=== PATIENT | female | born 1980 | race Two or more races ===

== ENCOUNTER 2023-04-21 16:35 | Emergency (ER) | payer MEDICAID, SELFPAY ==
[2023-04-21 16:42] VITALS: BP 143/94; PULSE 82; RESP 18; TEMP 36.4; O2SAT 100; BMI 24.1
--- NOTE | 2023-04-21 16:44 | ED_ITS ---
HPI - General Adult General Chief complaint: Headache Stated complaint: blood pressure Time Seen by Provider: 04/21/23 18:00 Source: patient Mode of arrival: ambulatory Limitations: no limitations Related Data Previous Rx's Medication Instructions Recorded nbadsackiu-bkqmdematfhqt-xhhbifql 1 cap PO Q6H PRN headache #20 caps 04/21/23 50 mg-300 mg-40 mg capsule (Fioricet) Allergies Allergy/AdvReac Type Severity Reaction Status Date / Time No Known Allergies* Allergy Unknown Uncoded 04/21/23 16:48 PMFSH Social History Social History Advance Directives: No Advance Directives Information Provided: Yes Physical Exam ED Vital Signs: Vital Signs - 24 hr 04/21/23 16:42 Temperature 97.5 F Pulse Rate 82 Respiratory Rate 18 Blood Pressure 143/94 H Pulse Oximetry 100 Oxygen Delivery Method Room Air BMI result Body Mass Index 24.1 Course Course Course Narrative: This is an RME: Additional HPI, ROS, PE not included below will be deferred to primary provider. 43 year old female HTN presents w/ diffuse headache 8/10 (no changes in vision) , lightheadedness X 5 days. Has been taking her BP at home a nd its high. Recently started on Amlodipine 5 mg ( 2X 2.5 mg tablets a day) now told to just take 2.5 per a provider at [facility]. No head trauma. Under alot of stress at work NIHSS- 0 no need for head CT at this time Plan- tordol labs Medical Decision Making Lab Data 04/21/23 17:50 04/21/23 17:50 Labs: Lab Results 04/21/23 04/21/23 Range/Units 17:50 17:50 WBC 6.0 (4.8-10.8) X10*3/uL RBC 4.53 (4.20-5.50) X10*6/uL Hgb 12.0 (12.0-16.0) g/dl Hct 38.1 (37.0-47.0) % MCV 84.1 (80.0-98.0) fL MCH 26.5 L (27.0-33.0) pg MCHC 31.5 (31.0-35.0) g/dl RDW 13.8 (11.0-16.0) % Plt Count 199 (160-400) X10*3/uL MPV 9.7 (9.4-12.3) fL Immature Gran % (Auto) 0.2 (0.0-0.4) % Neut % (Auto) 64.0 (45-73) % Lymph % (Auto) 28.7 (20-40) % [place] % (Auto) 6.1 (2-11) % Eos % (Auto) 0.5 (0-4) % Baso % (Auto) 0.5 (0-2) % Lymph # (Auto) 1.7 (1.2-4.9) X10*3/uL [place] # (Auto) 0.4 (0.1-1.2) X10*3/uL Eos # (Auto) 0.0 (0.0-0.4) X10*3/uL Baso # (Auto) 0.0 (0.0-0.2) X10*3/uL Abs Immat Gran (auto) 0.01 (0.00-0.03) X10*3/uL Absolute Neuts (auto) 3.9 (2.0-8.3) x10*3/uL Absolute Nucleated RBC 0.000 (0.0-0.012) X10*3/uL Nucleated RBC % (auto) 0.0 (0.0-0.2) /100WBC Sodium 138 (135-145) mmol/L Potassium 4.0 (3.3-5.1) mmol/L Chloride 107 (96-108) mmol/L Carbon Dioxide 26 (22-29) mmol/L Anion Gap 9 L (12-20) BUN 16 (9-16) mg/dL Creatinine 0.74 (0.5-1.4) mg/dL Estim Creat Clear Calc 90.0 Estimated GFR > 60 Random Glucose 97 (60-115) mg/dL Calcium 9.5 (8.4-10.2) mg/dL Magnesium 2.4 (1.6-2.6) mg/dL Total Bilirubin 0.4 (0.0-1.0) mg/dL AST 15 (5-31) U/L ALT 11 (0-31) U/L Alkaline Phosphatase 38 L (39-117) U/L C-Reactive Protein 0.12 (< or = 0.50) mg/dL Total Protein 7.2 (6.5-8.0) g/dL Albumin 4.2 (3.5-5.0) g/dL Discharge Plan Discharge Clinical Impression: Tension headache Patient Disposition: Home, Self-Care Instructions: Tension Headache (ED) Additional Instructions: Rest at home Medication for headache as prescribed Follow-up with PCP as needed Your blood pressure was elevated today to 174/95 and you missed your medication for blood pressure take it when you go home Prescriptions: New mzhcsueljk-nicfioaxlmdat-msnm [Fioricet] 50-300-40 mg capsule 1 cap PO Q6H PRN (Reason: headache) Qty: 20 0RF
[2023-04-21 17:56] LABS: MANUAL DIFF FLAG NO
[2023-04-21 17:59] LABS: Basophils Percent Auto 0.5 % (0-2); Eosinophils Percent Auto 0.5 % (0-4); Hematocrit 38.1 % (37.0-47.0); Imm Gran Abs Auto 0.01 X10*3/uL (0.00-0.03); Imm Gran Pct Auto 0.2 % (0.0-0.4); Lymphocytes Absolute Auto 1.7 X10*3/uL (1.2-4.9); Lymphocytes Percent Auto 28.7 % (20-40); Mean Corpuscular HGB Conc 31.5 g/dl (31.0-35.0); Mean Corpuscular Hemoglobin 26.5 pg (27.0-33.0); Mean Corpuscular Volume 84.1 fL (80.0-98.0); Mean Platelet Volume 9.7 fL (9.4-12.3); Monocytes Absolute Auto 0.4 X10*3/uL (0.1-1.2); Monocytes Percent Auto 6.1 % (2-11); Neutrophils Absolute Auto 3.9 x10*3/uL (2.0-8.3); Platelet Count 199 X10*3/uL (160-400); Red Blood Count 4.53 X10*6/uL (4.20-5.50); Red Cell Distribution Width 13.8 % (11.0-16.0)
[2023-04-21 18:10] LABS: Alanine Aminotransferase 11 U/L (0-31); Albumin Level 4.2 g/dL (3.5-5.0); Alkaline Phosphatase 38 U/L (39-117); Anion Gap 9 (12-20); Aspartate Amino Transferase 15 U/L (5-31); Bilirubin Total 0.4 mg/dL (0.0-1.0); Blood Urea Nitrogen 16 mg/dL (9-16); C Reactive Protein 0.12 mg/dL (< or = 0.50); Calcium 9.5 mg/dL (8.4-10.2); Carbon Dioxide 26 mmol/L (22-29); Chloride 107 mmol/L (96-108); Estimated Glomerular Filt Rate > 60; Glucose Random 97 mg/dL (60-115); Magnesium 2.4 mg/dL (1.6-2.6); Sodium 138 mmol/L (135-145); Total Protein 7.2 g/dL (6.5-8.0)
--- NOTE | 2023-04-21 18:51 | ED.HA ---
HPI - Headache General Chief Complaint: Headache Stated Complaint: blood pressure Time Seen by Provider: 04/21/23 18:00 Source: patient Mode of arrival: ambulatory Limitations: no limitations History of Present Illness HPI Narrative: Patient has increased stress at work with multiple complaints complaint of dizziness headache for last few does not get help at work sleep well no fever no chills has mild hypertension taking her medication no fever no chills patient been diagnosed with blood pressure for last 2 years did not take her blood pressure medicine today as she thought maybe that the cause for the headache and is on arrival patient's blood pressure was 143/94 Related Data Previous Rx's Medication Instructions Recorded jcxbgfpdxi-rhowgvdcapslr-ijxtufns 1 cap PO Q6H PRN headache #20 caps 04/21/23 50 mg-300 mg-40 mg capsule (Fioricet) Allergies Allergy/AdvReac Type Severity Reaction Status Date / Time No Known Allergies* Allergy Unknown Uncoded 04/21/23 16:48 Review of Systems Review of Systems: Yes all other systems are reviewed and are negative [facility] Social History Social History Advance Directives: No Advance Directives Information Provided: Yes Physical Exam Vital Signs: Vital Signs: Last Vital Signs Temp 97.5 F 04/21/23 16:42 Pulse 82 04/21/23 16:42 Resp 18 04/21/23 16:42 BP 143/94 H 04/21/23 16:42 Pulse Ox 100 04/21/23 16:42 O2 Del Method Room Air 04/21/23 16:42 BMI result Body Mass Index 24.1 Appearance: Alert. Oriented X3. No acute distress. Eyes: PERRLA, No Nystagmus ENT: Pharynx normal. Oral Mucosa moist no temporal artery tenderness Neck: Normal inspection. Neck supple. CVS: Normal heart rate and rhythm. Pulses normal. Respiratory: No respiratory distress. Equal air entry bilateral, no wheezing/rales/rhonchi Abdomen: Soft and nontender. Bowel sounds are present, no mass palpable, no CVA tenderness Skin: Skin warm and dry. Normal skin color. Normal skin turgor. Extremities: No lower extremity edema. No calf tenderness Neuro: Oriented X 3. No motor deficit. No sensory deficit.No cerebellar signs , cranial nerves II-XII intact Medications Administered Discontinued Medications Generic Name Dose Route Start Last Admin Trade Name Aurea PRN Reason Stop Dose Admin Acetaminophen/Butalbital/Caffeine 1 tab 04/21/23 18:42 04/21/23 19:06 Butalb/Acetamin/Caff 50/325/40 Tablet PO 04/21/23 18:43 1 tab ONCE ONE Administration Medical Decision Making Medical Decision Making [facility] Narrative: Patient multiple complaints, dizziness and headache likely from tension headache will discharge her on Fioricet labs are stable patient blood pressure is elevated as she did not take her blood pressure medicine advised to continue her medication Lab Data [facility] Lab Attestation statement: I reviewed the patient's lab results. 04/21/23 17:50 04/21/23 17:50 Labs: Lab Results 04/21/23 04/21/23 04/21/23 Range/Units 17:50 17:50 17:50 WBC 6.0 (4.8-10.8) X10*3/uL RBC 4.53 (4.20-5.50) X10*6/uL Hgb 12.0 (12.0-16.0) g/dl Hct 38.1 (37.0-47.0) % MCV 84.1 (80.0-98.0) fL MCH 26.5 L (27.0-33.0) pg MCHC 31.5 (31.0-35.0) g/dl RDW 13.8 (11.0-16.0) % Plt Count 199 (160-400) X10*3/uL MPV 9.7 (9.4-12.3) fL Immature Gran % (Auto) 0.2 (0.0-0.4) % Neut % (Auto) 64.0 (45-73) % Lymph % (Auto) 28.7 (20-40) % [place] % (Auto) 6.1 (2-11) % Eos % (Auto) 0.5 (0-4) % Baso % (Auto) 0.5 (0-2) % Lymph # (Auto) 1.7 (1.2-4.9) X10*3/uL [place] # (Auto) 0.4 (0.1-1.2) X10*3/uL Eos # (Auto) 0.0 (0.0-0.4) X10*3/uL Baso # (Auto) 0.0 (0.0-0.2) X10*3/uL Abs Immat Gran (auto) 0.01 (0.00-0.03) X10*3/uL Absolute Neuts (auto) 3.9 (2.0-8.3) x10*3/uL Absolute Nucleated RBC 0.000 (0.0-0.012) X10*3/uL Nucleated RBC % (auto) 0.0 (0.0-0.2) /100WBC ESR 6 (0-20) MM/HR Sodium 138 (135-145) mmol/L Potassium 4.0 (3.3-5.1) mmol/L Chloride 107 (96-108) mmol/L Carbon Dioxide 26 (22-29) mmol/L Anion Gap 9 L (12-20) BUN 16 (9-16) mg/dL Creatinine 0.74 (0.5-1.4) mg/dL Estim Creat Clear Calc 90.0 Estimated GFR > 60 Random Glucose 97 (60-115) mg/dL Calcium 9.5 (8.4-10.2) mg/dL Magnesium 2.4 (1.6-2.6) mg/dL Total Bilirubin 0.4 (0.0-1.0) mg/dL AST 15 (5-31) U/L ALT 11 (0-31) U/L Alkaline Phosphatase 38 L (39-117) U/L C-Reactive Protein 0.12 (< or = 0.50) mg/dL Total Protein 7.2 (6.5-8.0) g/dL Albumin 4.2 (3.5-5.0) g/dL Discharge Plan Discharge Clinical Impression: Tension headache Patient Disposition: Home, Self-Care Instructions: Tension Headache (ED) Additional Instructions: Rest at home Medication for headache as prescribed Follow-up with PCP as needed Your blood pressure was elevated today to 174/95 and you missed your medication for blood pressure take it when you go home Prescriptions: New yoiqkilmgp-cuyqxxhsfnyll-iifm [Fioricet] 50-300-40 mg capsule 1 cap PO Q6H PRN (Reason: headache) Qty: 20 0RF
[2023-04-21 19:05] LABS: Erythrocyte Sedimentation Rate 6 MM/HR (0-20)
[2023-04-21] MEDS: Butalb/Acetamin/Caff 50/325/40 TABLET 1 TAB PO (19:06)
[2023-04-21 19:07] VITALS: BP 171/106; PULSE 72; RESP 16; O2SAT 100
== END 2023-04-21 19:10 | disposition home or self-care (01) ==
PROVIDERS: Physician Assistant; Emergency Provider Internal Medicine; PCP Internal Medicine
DX: G44.209 Tension-type headache, unspecified, not intractable (principal); R42 Dizziness and giddiness; I10 Essential (primary) hypertension
CPT/HCPCS: 36415; 80053; 83735; 85025; 85652; 86140; 99283; 99284

== ENCOUNTER 2023-09-24 14:23 | Emergency (ER) | payer MEDICAID, SELFPAY ==
--- NOTE | ~2023-09-24 | XR_ITS ---
EXAMINATION: XR CHEST CLINICAL INFORMATION: Cough COMPARISON: None available. TECHNIQUE: 2 views of the chest were obtained. FINDINGS: No significant abnormality is noted involving the heart, lungs, mediastinum, bony thorax or soft tissues. XR/XR chest 2V IMPRESSION: Unremarkable examination.
--- NOTE | 2023-09-24 14:32 | ED.HA ---
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 Patient reports her son is here with similar symptoms. She denies any associated shortness of breath, chest pain, neck pain, neck stiffness, fevers, chills, vomiting, diarrhea, abdominal pain. Of note, patient was in [place] 17 days and returned back to the [place] on September 13. Patient reports while she was in the [place] she had flu-like symptoms and felt that she had dengue. she was seen in the emergency room there and told that she had a viral syndrome and her platelets were low. She did follow up while she was in [place] and had repeat CBC which showed an improved platelet count. Related Data Previous Rx's Medication Instructions Recorded hrdsdqarat-namxaqkxbwtim-fyrimkhj 1 cap PO Q6H PRN headache #20 caps 04/21/23 50 mg-300 mg-40 mg capsule (Fioricet) Allergies Allergy/AdvReac Type Severity Reaction Status Date / Time No Known Allergies* Allergy Unknown Uncoded 04/21/23 16:48 Review of Systems Review of Systems: Yes all other systems are reviewed and are negative Constitutional: Constitutional: Reports no additional constitutional complaints, Denies body ache(s), Denies chills, Denies fever(s), Reports headache(s) and Denies weakness Eyes: Eyes: Reports no additional eye complaints and Denies change in vision ENT: Reports system reviewed and no additional complaints, except as documented, Denies dizziness, Reports headache(s), Denies nasal congestion, Denies nasal discharge and Denies neck pain Cardiovascular: Cardiovascular: Reports no additional cardiovascular complaints, Denies chest pain, Denies leg edema and Denies dyspnea Respiratory: Respiratory: Reports no additional respiratory complaints, Reports cough and Denies dyspnea Gastrointestinal: Gastrointestinal: Reports no additional gastrointestinal complaints, Denies abdominal pain, Denies diarrhea, Denies nausea and Denies vomiting Genitourinary: Genitourinary: Reports no additional female genitourinary complaints and Denies urinary incontinence Musculoskeletal: Musculoskeletal: Reports no additional musculoskeletal complaints, Denies back pain, Denies arthralgias, Denies joint swelling, Denies neck pain, Denies numbness and Denies tingling Integumentary/Breasts: Skin/Breast: Reports system reviewed and no additional complaints, except as docu and Denies rash Neurologic: Reports system reviewed and no additional complaints, except as documented, Denies Abnormal speech present, Denies dizziness, Reports headache(s), Denies numbness, Denies tingling and Denies weakness [facility] Past Medical History Attestation statement: The following information was validated with the patient. Source: old records reviewed and nursing notes reviewed Social History Social History Advance Directives: No Advance Directives Information Provided: Yes Physical Exam Vital Signs: Vital Signs: Last Vital Signs Temp 99.0 F 09/24/23 14:33 Pulse 77 09/24/23 14:33 Resp 18 09/24/23 14:33 BP 135/83 09/24/23 14:33 Pulse Ox 100 09/24/23 14:33 O2 Del Method Room Air 09/24/23 14:33 BMI result Body Mass Index 22.9 Const: General: cooperative, healthy appearing, comfortable and no acute distress Orientation/consciousness: patient oriented x3 Limitations: no limitations HEENT: Head: Yes normal to inspection Ears: hearing grossly normal bilaterally and TM's normal bilaterally General nose exam: Normal external nose present Face and sinus: Yes normal facial exam Mouth: Normal oral and palatal mucosa present Throat: Yes posterior oropharynx normal, Yes tonsils normal and Yes uvula midline Eyes: General: appearance normal, both eyes and all related structures Pupils: Equal, round and reactive pupils present Neck: Neck: Yes normal visual inspection, Yes full ROM, Yes no lymphadenopathy and Yes no meningeal signs Chest: Chest palpation & inspection: normal inspection of the chest Resp: Effort & Inspection: normal respiratory effort Auscultation: clear to auscultation bilaterally Cardio: Rate: regular rate Rhythm: regular rhythm Peripheral pulses: Peripheral pulses 2+ throughout GI: Inspection: Yes normal to inspection Palpation (GI): Soft to palpation and nontender Auscultation: normal bowel sounds Back/Spine/Pelvis: Thoracic/Lumbar Spine: thoracic and lumbar spine normal to inspection Skin: General skin exam: no rashes or lesions noted Neuro: General: patient oriented x3, no meningeal signs, no focal motor deficits and normal sensation to monofilament Cranial nerves: Yes Equal, round and reactive pupils present Cognition (Neuro): normal cognition Speech: No Abnormal speech present Gait exam (Neuro): Normal gait present Motor exam (neuro): 5/5 motor strength present throughout Extrem: General: Yes normal to inspection, Yes no pedal edema and Yes no calf tenderness Course Course Course Narrative: Patient is a 43 female Who presents emergency department for evaluation of upper respiratory symptoms x 3 weeks, symptom onset while recently traveling to [facility] where there is Dengue fever. She reports that she had blood work obtained which revealed ?low platelets? was advised that she cannot receive antibiotics. Son ill with similar symptoms. Progression over the past 1 week, of cough, chest discomfort only when coughing, denies shortness of breath. No fevers or chills. She is very concerned about her platelets, and would like repeat labs. Plan: labs, viral testing, CXR Medical Decision Making Medical Decision Making [facility] Narrative: 43-year-old female previously healthy here with complaints of 1 week of headache, cough. Patient reports her son is here with similar symptoms. She denies any associated shortness of breath, chest pain, neck pain, neck stiffness, fevers, chills, vomiting, diarrhea, abdominal pain. Of note, patient was in [place] 17 days and returned back to the [place] on [place] 13. Patient reports while she was in the [place] she had flu-like symptoms and felt that she had dengue. she was seen in the emergency room there and told that she had a viral syndrome and her platelets were low. She did follow up while she was in [place] and had repeat CBC which showed an improved platelet count. Exam is benign. vitals are stable. patient had labs, viral testing, chest x-ray ordered from triage I will review Differential Diagnosis Differential Diagnoses: The differential diagnosis associated with the presentation includes viral syndrome low concern for pneumonia, PE, meningitis/encephalitis- based on clinical exam Admission/Observation Consideration of admission/observation: Escalation of care including admission/observation considered normal vitals, not requiring supplemental oxygen and or IV hydration or hospitalization for further management Lab Data [facility] Lab Attestation statement: I reviewed the patient's lab results. unremarkable 09/24/23 14:52 09/24/23 14:52 Labs: Lab Results 09/24/23 Range/Units 14:52 WBC 6.0 (4.8-10.8) X10*3/uL RBC 4.73 (4.20-5.50) X10*6/uL Hgb 12.4 (12.0-16.0) g/dl Hct 39.6 (37.0-47.0) % MCV 83.7 (80.0-98.0) fL MCH 26.2 L (27.0-33.0) pg MCHC 31.3 (31.0-35.0) g/dl RDW 14.1 (11.0-16.0) % Plt Count 209 (160-400) X10*3/uL MPV 9.9 (9.4-12.3) fL Immature Gran % (Auto) 0.2 (0.0-0.4) % Neut % (Auto) 59.0 (45-73) % Lymph % (Auto) 33.6 (20-40) % [place] % (Auto) 6.2 (2-11) % Eos % (Auto) 0.5 (0-4) % Baso % (Auto) 0.5 (0-2) % Lymph # (Auto) 2.0 (1.2-4.9) X10*3/uL [place] # (Auto) 0.4 (0.1-1.2) X10*3/uL Eos # (Auto) 0.0 (0.0-0.4) X10*3/uL Baso # (Auto) 0.0 (0.0-0.2) X10*3/uL Abs Immat Gran (auto) 0.01 (0.00-0.03) X10*3/uL Absolute Neuts (auto) 3.5 (2.0-8.3) x10*3/uL Absolute Nucleated RBC 0.000 (0.0-0.012) X10*3/uL Nucleated RBC % (auto) 0.0 (0.0-0.2) /100WBC Sodium 140 (135-145) mmol/L Potassium 3.6 (3.3-5.1) mmol/L Chloride 105 (96-108) mmol/L Carbon Dioxide 27 (22-29) mmol/L Anion Gap 12 (12-20) BUN 9 (9-16) mg/dL Creatinine 0.78 (0.5-1.4) mg/dL Estim Creat Clear Calc 85.3 Estimated GFR > 60 Random Glucose 86 (60-115) mg/dL Calcium 9.3 (8.4-10.2) mg/dL Influenza Type A (PCR) NEGATIVE (Negative) Influenza Type B (PCR) NEGATIVE (Negative) RSV RNA Qual (PCR) NEGATIVE (Negative) SARS-CoV-2 RNA (RT-PCR) NEGATIVE (Negative) S. pyogenes GrpA MILVIA Negative (Negative) Independent Interpretation I performed an independent interpretation of an: Plain X-Ray Interpretation: I independently reviewed the x-ray and agree with Radiology report Radiology Impression Discussion of test interpretation with radiology: I have reviewed the radiologist's reading. Radiologist Impression: [address] [address] XRay Report Signed Patient: Arlet Mejia MR#: [id number] : 1980 Acct:[id number] Age/Sex: 43 / F ADM Date: 09/24/23 Loc: .ED Attending Dr: Ordering Physician: Charlette Barbosa CNP Date of Service: 09/24/23 Procedure(s): XR chest 2V Accession Number(s): [id number] cc: Ramona Lopez MD; Charlette Barbosa CNP~ EXAMINATION: XR CHEST CLINICAL INFORMATION: Cough COMPARISON: None available. TECHNIQUE: 2 views of the chest were obtained. FINDINGS: No significant abnormality is noted involving the heart, lungs, mediastinum, bony thorax or soft tissues. XR/XR chest 2V IMPRESSION: Unremarkable examination. Prescription Management I considered prescription management with: Antibiotic Discharge Plan Discharge Clinical Impression: Viral infection Patient Disposition: Home, Self-Care Instructions: Viral Syndrome (ED) Additional Instructions: Chest x-ray is normal. Labs are normal. Testing for flu, covid, rsv and strep are negative. La radiograf?a de t?rax es normal. Los laboratorios son normales. Las pruebas de gripe, covid, rsv y estreptococo son negativas. Prescriptions: No Action kgswxmzbiq-mcaozhxqywqmd-xysl [Fioricet] 50-300-40 mg capsule 1 cap PO Q6H PRN (Reason: headache) Qty: 20 0RF Referrals: Ramona Lopez MD [Primary Care Provider] - 1 week Interventions: ED Discharge Assessment Last Done: 09/24/23 16:34 Discharge Date/Time: 09/24/23 16:35 Print Language: [place]
[2023-09-24 14:33] VITALS: BP 135/83; PULSE 77; RESP 18; TEMP 37.2; O2SAT 100; BMI 22.9
[2023-09-24 14:59] LABS: MANUAL DIFF FLAG NO
[2023-09-24 15:01] LABS: Basophils Percent Auto 0.5 % (0-2); Eosinophils Percent Auto 0.5 % (0-4); Hematocrit 39.6 % (37.0-47.0); Hemoglobin 12.4 g/dl (12.0-16.0); Imm Gran Abs Auto 0.01 X10*3/uL (0.00-0.03); Imm Gran Pct Auto 0.2 % (0.0-0.4); Lymphocytes Percent Auto 33.6 % (20-40); Mean Corpuscular HGB Conc 31.3 g/dl (31.0-35.0); Mean Corpuscular Hemoglobin 26.2 pg (27.0-33.0); Mean Corpuscular Volume 83.7 fL (80.0-98.0); Mean Platelet Volume 9.9 fL (9.4-12.3); Monocytes Absolute Auto 0.4 X10*3/uL (0.1-1.2); Monocytes Percent Auto 6.2 % (2-11); Neutrophils Absolute Auto 3.5 x10*3/uL (2.0-8.3); Platelet Count 209 X10*3/uL (160-400); Red Blood Count 4.73 X10*6/uL (4.20-5.50); Red Cell Distribution Width 14.1 % (11.0-16.0)
[2023-09-24 15:14] LABS: IDNOW Serial# 08D9AD1C; Strep A Nucleic Acid Negative (Negative)
[2023-09-24 15:16] LABS: Anion Gap 12 (12-20); Blood Urea Nitrogen 9 mg/dL (9-16); Calcium 9.3 mg/dL (8.4-10.2); Carbon Dioxide 27 mmol/L (22-29); Chloride 105 mmol/L (96-108); Creatinine Clr Calc Pharmacy 85.3; Estimated Glomerular Filt Rate > 60; Glucose Random 86 mg/dL (60-115); Potassium 3.6 mmol/L (3.3-5.1); Sodium 140 mmol/L (135-145)
[2023-09-24 15:53] LABS: Influenza A PCR NEGATIVE (Negative); Influenza B PCR NEGATIVE (Negative); Resp Syncy Virus RNA Qual PCR NEGATIVE (Negative); SARS COV2 PCR INHOUSE NEGATIVE (Negative)
== END 2023-09-24 16:35 | disposition home or self-care (01) ==
PROVIDERS: Nurse Practitioner Family; Emergency Provider Emergency Medicine; PCP Internal Medicine
DX: B34.9 Viral infection, unspecified (principal); R05.9 Cough, unspecified; R51.9 Headache, unspecified; Z20.822 Contact with and (suspected) exposure to COVID-19; Z20.828 Contact with and (suspected) exposure to other viral communicable diseases
CPT/HCPCS: 0241U; 71046; 80048; 85025; 87651; 99282; 99283

== ENCOUNTER 2023-10-24 13:22 | Emergency (ER) | payer MEDICAID, SELFPAY ==
--- NOTE | ~2023-10-24 | XR_ITS ---
EXAMINATION: XR SHOULDER, RIGHT CLINICAL INFORMATION: Pain, no injury COMPARISON: None available. TECHNIQUE: AP external rotation, Grashey, scapular Y, and axillary views of the right shoulder. FINDINGS: No acute fracture or dislocation. Glenohumeral and acromioclavicular alignment is anatomic with normal joint space. No abnormal soft tissue calcifications. XR/XR shoulder RT min 2V IMPRESSION: No evidence of acute osseous abnormality.
[2023-10-24 13:33] VITALS: BP 130/85; PULSE 74; RESP 18; TEMP 37.2; O2SAT 99; BMI 23.7
--- NOTE | 2023-10-24 13:37 | ED_ITS ---
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 No known injury or trauma. Worsened at night time when laying on the shoulder. 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 Taking tylenol for pain at home with no relief. No associated weakness, nunbness or tingling of the extremity. Related Data Previous Rx's Medication Instructions Recorded [id number]-pxlhndivjfdqp-lahobmnw 1 cap PO Q6H PRN headache #20 caps 04/21/23 50 mg-300 mg-40 mg capsule (Fioricet) naproxen 500 mg tablet 500 mg PO BID PRN pain #30 tabs 10/24/23 Allergies Allergy/AdvReac Type Severity Reaction Status Date / Time No Known Allergies* Allergy Unknown Uncoded 10/24/23 13:36 Review of Systems Review of Systems: Yes all other systems are reviewed and are negative Constitutional: Constitutional: Reports no additional constitutional compla ints, Denies body ache(s), Denies chills, Denies fever(s), Denies headache(s) and Denies weakness Eyes: Eyes: Reports no additional eye complaints and Denies change in vision ENT: Reports system reviewed and no additional complaints, except as documented, Denies dizziness, Denies headache(s), Denies nasal congestion, Denies nasal discharge and Denies neck pain Cardiovascular: Cardiovascular: Reports no additional cardiovascular complaints, Denies chest pain, Denies leg edema and Denies dyspnea Respiratory: Respiratory: Reports no additional respiratory complaints, Denies cough and Denies dyspnea Gastrointestinal: Gastrointestinal: Reports no additional gastrointestinal complaints, Denies abdominal pain, Denies diarrhea, Denies nausea and Denies vomiting Genitourinary: Genitourinary: Reports no additional female genitourinary complaints and Denies urinary incontinence Musculoskeletal: Musculoskeletal: Reports no additional musculoskeletal complaints, Denies back pain, Reports arthralgias, Denies joint swelling, Denies neck pain, Denies numbness and Denies tingling Integumentary/Breasts: Skin/Breast: Reports system reviewed and no additional complaints, except as docu and Denies rash Neurologic: Reports system reviewed and no additional complaints, except as documented, Denies Abnormal speech present, Denies dizziness, Denies headache(s), Denies numbness, Denies tingling and Denies weakness PMFSH Past Medical History Attestation statement: The following information was validated with the patient. Source: old records reviewed and nursing notes reviewed Onset Date is defined in the Problem List Problems that require an onset date and time if occurred within 24 hrs of arrival to the ED Aortic Dissection and Rupture; Neurologic impairment; Cardiopulmonary Arrest; En dotracheal Intubation; Insertion or Replacement of Mechanical Circulatory Assist Device Social History Social History Advance Directives: No Advance Directives Information Provided: No Physical Exam Vital Signs: Vital Signs: Last Vital Signs Temp 98.9 F 10/24/23 13:33 Pulse 74 10/24/23 13:33 Resp 18 10/24/23 13:33 BP 130/85 10/24/23 13:33 Pulse Ox 99 10/24/23 13:33 O2 Del Method Room Air 10/24/23 13:33 BMI result Body Mass Index 23.7 Const: General: cooperative, healthy appearing, comfortable and no acute distress Orientation/consciousness: patient oriented x3 Limitations: no limitations HEENT: Head: Yes normal to inspection Ears: hearing grossly normal bilaterally General nose exam: Normal external nose present Face and sinus: Yes normal facial exam Mouth: Normal oral and palatal mucosa present Throat: Yes posterior oropharynx normal Eyes: General: appearance normal, both eyes and all related structures Pupils: Equal, round and reactive pupils present Neck: Neck: Yes normal visual inspection Chest: Chest palpation & inspection: normal inspection of the chest Resp: Effort & Inspection: normal respiratory effort Auscultation: clear to auscultation bilaterally Cardio: Rate: regular rate Rhythm: regular rhythm Peripheral pulses: Peripheral pulses 2+ throughout GI: Inspection: Yes normal to inspection Palpation (GI): Soft to palpation and nontender Auscultation: normal bowel sounds Back/Spine/Pelvis: Thoracic/Lumbar Spine: thoracic and lumbar spine normal to inspection Skin: General skin exam: no rashes or lesions noted Neuro: General: patient oriented x3, no focal motor deficits and normal sensation to monofilament Cranial nerves: Yes Equal, round and reactive pupils present Cognition (Neuro): normal cognition Speech: No Abnormal speech present Gait exam (Neuro): Normal gait present Motor exam (neuro): 5/5 motor strength present throughout Extrem: Other: There is tenderness to palpation to the right posterior shoulder and trapezius which is worsened with palpation and movement of the extremity. There is no associated weakness. Normal sensation distally. Normal radial and ulnar pulses. General: Yes normal to inspection Course Course Course Narrative: this is a rapid medical exam. Defer additional HPI, ROS, PE to prior provider. 43-year-old female previously healthy here with complaints of atraumatic right shoulder pain for 1 week. Will check x-rays. Vitals stable. Medical Decision Making Medical Decision Making MDM Narrative: 43-year-old female previously healthy, right hand dominant here with complaints of atraumatic right shoulder pain for 1 week. No known injury or trauma. Worsened at night time when laying on the shoulder. 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 No associated weakness, nunbness or tingling of the extremity. There is tenderness to palpation to the right posterior shoulder and trapezius which is worsened with palpation and movement of the extremity. There is no associated weakness. Normal sensation distally. Normal radial and ulnar pulses. ?strain or overuse injury. Will obtain x-ray Differential Diagnosis Differential Diagnoses: The differential diagnosis associated with the presentation includes strain, sprain, bursitis, tendon low concern for vascular injury, fracture, dislocation Admission/Observation Consideration of admission/observation: Escalation of care including admission/observation considered low concern for vascular injury, complex fracture, dislocation requiring advanced imaging, urgent orthopedic consultation or further manage Independent Interpretation I performed an independent interpretation of an: Plain X-Ray Interpretation: I independently reviewed the x-ray and agree with the radiology report Radiology Impression Discussion of test interpretation with radiology: I have reviewed the radiologist's reading. Radiologist Impression: [address] [address] XRay Report Signed Patient: Arlet Mejia MR#: [id number] : 1980 Acct:[id number] Age/Sex: 43 / F ADM Date: 10/24/23 Loc: HO.ED Attending Dr: Ordering Physician: Jade Dee NP Date of Service: 10/24/23 Procedure(s): XR shoulder RT min 2V Accession Number(s): [id number] cc: Ramona Lopez MD; Jade Dee NP~ EXAMINATION: XR SHOULDER, RIGHT CLINICAL INFORMATION: Pain, no injury COMPARISON: None available. TECHNIQUE: AP external rotation, Grashey, scapular Y, and axillary views of the right shoulder. FINDINGS: No acute fracture or dislocation. Glenohumeral and acromioclavicular alignment is anatomic with normal joint space. No abnormal soft tissue calcifications. XR/XR shoulder RT min 2V IMPRESSION: No evidence of acute osseous abnormality. Tests considered The following testing was considered but not selected: low concern for vascular injury, fracture, dislocation requiring advanced imaging Prescription Management I considered prescription management with: Pain Medication Discharge Plan Discharge Clinical Impression: Acute shoulder pain Patient Disposition: Home, Self-Care Instructions: Arthralgia (ED), Shoulder Pain (ED) Additional Instructions: X-rays show no bony abnormality Apply heat or ice to the area Gentle stretching Follow-up with your PCP for continued symptoms. Las radiograf?as no muestran ninguna anomal?a ?sea. Aplicar calor o hielo en la nancy. Estiramiento suave Adri un seguimiento con chang PCP si los s?ntomas persisten. Prescriptions: New naproxen 500 mg tablet 500 mg PO BID PRN (Reason: pain) Qty: 30 0RF No Action cwihbuldsi-qqintkxiljpet-cjrq [Fioricet] 50-300-40 mg capsule 1 cap PO Q6H PRN (Reason: headache) Qty: 20 0RF Referrals: Ramona Lopez MD [Primary Care Provider] - 1 week Interventions: ED Discharge Assessment Last Done: 10/24/23 16:03 Print Language: Pashto
== END 2023-10-24 16:04 | disposition home or self-care (01) ==
PROVIDERS: Emergency Provider Emergency Medicine; PCP Internal Medicine
DX: M25.511 Pain in right shoulder (principal)
CPT/HCPCS: 73030; 99282; 99283

== ENCOUNTER 2023-11-20 10:18 | Emergency (ER) | payer MEDICAID, SELFPAY ==
[2023-11-20 10:56] VITALS: BP 134/90; PULSE 77; RESP 18; TEMP 36.7; O2SAT 100; BMI 23.8
--- NOTE | 2023-11-20 11:17 | ED_ITS ---
HPI - Extremity Problem General Chief complaint: Extremity Injury, Upper Stated complaint: R arm pain Time Seen by Provider: 11/20/23 11:13 Source: patient Mode of arrival: ambulatory Limitations: language barrier ( Wallisian-speaking) History of Present Illness HPI Narrative: Patient is a 43-year-old female who presents emergency department for evaluation of right shoulder pain. Pain radiates down the arm. Denies numbness or tingling. She reports onset approximately 4 days ago. Is made worse with heavy lifting while at work or movement of the arm. She denies associated neck pain or neck stiffness. Denies any overt injury. She states she was seen here earlier this month for the same pain, she was taking naproxen at that time which did help and her symptoms resolved but have now returned. She denies fevers, chills, redness, swelling to the shoulder/ arm. Related Data Previous Rx's Medication Instructions Recorded pptosmfzvv-stccievxrpptx-tuvrcmve 1 cap PO Q6H PRN headache #20 caps 04/21/23 50 mg-300 mg-40 mg capsule (Fioricet) naproxen 500 mg tablet 500 mg PO BID PRN pain #30 tabs 10/24/23 cyclobenzaprine 10 mg tablet 10 mg PO TID PRN muscle spasm #14 11/20/23 tabs Allergies Allergy/AdvReac Type Severity Reaction Status Date / Time No Known Allergies* Allergy Unknown Uncoded 11/20/23 10:58 Review of Systems Review of Systems: Yes all other systems are reviewed and are negative PMFSH Past Medical History Attestation statement: The following information was validated with the patient. Source: old records reviewed Social History Social History Advance Directives: No Physical Exam Vital Signs: Vital Signs: Last Vital Signs Temp 98.0 F 11/20/23 10:56 Pulse 77 11/20/23 10:56 Resp 18 11/20/23 10:56 BP 134/90 H 11/20/23 10:56 Pulse Ox 100 11/20/23 10:56 O2 Del Method Room Air 11/20/23 10:56 BMI result Body Mass Index 23.8 Appearance: Alert.?Oriented to person, place and time. No acute distress.?Normal affect. Eyes: Pupils equal, round and reactive to light.? ENT: Pharynx normal.?? Neck: Normal inspection.? Neck supple.?? CVS: Heart sounds normal. Normal heart rate and rhythm.? Pulses normal.?? Respiratory: No respiratory distress.? Lung sounds clear to auscultation bilaterally?? Abdomen: Soft and non-tender. Normoactive bowel sounds. Skin: Skin warm and dry.? Normal skin color.? Extremities: No extremity edema. Right shoulder without erythema warmth or swelling. Full AROM to the right elbow and wrist. Tenderness upon palpation of the right posterior shoulder and trapezius, worsening with overhead extension and abduction. no weakness. Normal sensation distally. 2+ radial pulse bilaterally. Neuro: Moves all extremities spontaneously. Sensation intact bilaterally. Ambulates with normal steady gait. Medical Decision Making Medical Decision Making MDM Narrative: Patient is a 43-year-old female who presents emergency department for evaluation of right shoulder pain. She was seen in the emergency department earlier this month 10/24/2023, had XR imaging at that time without acute osseous abnormality, no overt injury since then, do not anticipate need for repeat XR imaging. Pain is exacerbated with heavy lifting. extremities neurovascularly intact distally, no weakness, numbness or tingling. Tylenol/ naproxen not providing pain relief. Discussed with patient likely strain of the shoulder versus overuse injury. She has notable muscle tenderness upon palpation will trial cyclobenzaprine and advised to follow-up with her primary care doctor for further management. She states she will call their office tomorrow. At this time feel that she is stable for discharge home. Differential Diagnosis Differential Diagnoses: The differential diagnosis associated with the presentation includes ( strain, sprain, overuse injury. Low suspicion for tendonitis, vascular injury, fracture, dislocation) External Record Review External record reviewed: Outpatient record Tests considered The following testing was considered but not selected: see narrative above, XR deferred Prescription Management I considered prescription management with: Pain Medication Discharge Plan Discharge Clinical Impression: Right shoulder strain Patient Disposition: Home, Self-Care Instructions: R.I.C.E. Treatment (ED), Rotator Cuff Injury Exercises (DC) Additional Instructions: I have sent a prescription for muscle relaxer to your pharmacy, this medication may make you drowsy, he should not drive, drink alcohol, or work while taking this medication. As discussed, please contact your primary care provider to schedule a follow-up visit for this ongoing pain, they may consider a course of physical therapy as well. You may return back to emergency department any new or worsening symptoms or concerns. Prescriptions: New cyclobenzaprine 10 mg tablet 10 mg PO TID PRN (Reason: muscle spasm) Qty: 14 0RF No Action mwsajxhosu-zqibicczmsqun-fzkp [Fioricet] 50-300-40 mg capsule 1 cap PO Q6H PRN (Reason: headache) Qty: 20 0RF naproxen 500 mg tablet 500 mg PO BID PRN (Reason: pain) Qty: 30 0RF Referrals: Ramona Lopez MD [Primary Care Provider] - Stand Alone Forms: Work/School Release
== END 2023-11-20 11:44 | disposition home or self-care (01) ==
PROVIDERS: Emergency Provider Emergency Medicine; PCP Internal Medicine
DX: S46.911A Strain of unspecified muscle, fascia and tendon at shoulder and upper arm level, right arm, initial encounter (principal); M79.601 Pain in right arm; X50.0XXA Overexertion from strenuous movement or load, initial encounter; Y93.9 Activity, unspecified; Y92.9 Unspecified place or not applicable; Y99.0 Civilian activity done for income or pay; Z79.899 Other long term (current) drug therapy
CPT/HCPCS: 99282; 99283

== ENCOUNTER 2023-12-12 16:51 | Emergency (ER) | payer MEDICAID, SELFPAY ==
[2023-12-12 17:42] VITALS: BP 160/108; PULSE 89; RESP 16; TEMP 37.4; O2SAT 99; BMI 23.3
--- NOTE | 2023-12-12 17:42 | ECG_ITS ---
Test Reason : SHOULDER PAIN Blood Pressure : / mmHG Vent. Rate : 074 BPM Atrial Rate : 074 BPM P-R Int : 146 ms QRS Dur : 074 ms QT Int : 372 ms P-R-T Axes : 072 069 072 degrees QTc Int : 412 ms Normal sinus rhythm Normal ECG No previous ECGs available Referred By: Inge Traore Electronically Signed By:KINGS RUSH MD
--- NOTE | 2023-12-12 17:42 | ED_ITS ---
HPI - Extremity Injury (Upper) General Chief Complaint: Extremity Problem Stated Complaint: R shoulder pain Time Seen by Provider: 12/12/23 20:03 Source: patient Mode of arrival: ambulatory History of Present Illness HPI narrative: 43-year-old female with persistent right shoulder discomfort as well as muscle pain across the right shoulder that is been ongoing, patient is having some difficulty on getting seen by Physical therapy but has an appointment with her primary care doctor this next week. Patient denies any associated difficulty breathing or fever/chills. Related Data Previous Rx's Medication Instructions Recorded rwfnrldepn-gmqtwpdcjkgpv-negplxrk 1 cap PO Q6H PRN headache #20 caps 04/21/23 50 mg-300 mg-40 mg capsule (Fioricet) naproxen 500 mg tablet 500 mg PO BID PRN pain #30 tabs 10/24/23 cyclobenzaprine 10 mg tablet 10 mg PO TID PRN muscle spasm #14 11/20/23 tabs cyclobenzaprine 5 mg tablet 5 mg PO BEDTIME PRN muscle spasm 12/12/23 #5 tabs Allergies Allergy/AdvReac Type Severity Reaction Status Date / Time No Known Allergies* Allergy Unknown Uncoded 12/12/23 17:42 Review of Systems Review of Systems: Pertinent positives and negatives as stated in HPI PMFSH Past Medical History Source: nursing notes reviewed Social History Social History Advance Directives: No Advance Directives Information Provided: No Physical Exam Vital Signs: Vital Signs: Last Vital Signs Temp 98.5 F 12/12/23 20:01 Pulse 81 12/12/23 20:01 Resp 19 12/12/23 20:01 BP 155/98 H 12/12/23 20:01 Pulse Ox 98 12/12/23 20:01 O2 Del Method Room Air 12/12/23 20:01 BMI result Body Mass Index 23.3 VITAL SIGNS: Reviewed. GENERAL: Well developed, well nourished, in no acute distress. HEAD: Normocephalic/atraumatic EYES: PERRLA, EOMI LUNGS: Normal breath sounds. No adventitious sounds or accessory muscle use. SpO2<98> CARDIOVASCULAR: Regular rate and rhythm without noted murmurs ABDOMEN: Soft, non-tender, non-distended with bowel sounds. MUSCULOSKELETAL: No tenderness, deformities, or effusions noted on gross inspection. EXTREMITIES: No cyanosis, clubbing or edema. RIGHT SHOULDER: No obvious deformity, no effusion noted, no erythema/induration. Palpation over musculature on right shoulder demonstrates firmness SKIN: Inspection of the skin reveals no rashes NEUROLOGIC: Alert and oriented x 4. Strength and sensation to light touch were grossly intact x 4. Course Course Course Narrative: RME: 43 year-old F w/no sig PMHx presenting to the ED c/o acute on chronic R shoulder pain. Has been seen in our ED for similar in the past, had negative XRs in Oct. denies CP EKG ordered Full HPI, ROS and PE to be performed by primary ED provider. Medical Decision Making Medical Decision Making MDM Narrative: 43-year-old female with history and clinical presentation of persistent right shoulder discomfort and likely associated muscle spasm, no concerns for cardiopulmonary etiology at this time I did review the EKG which was conducted and does not show any ischemic changes. Patient given combination analgesics and lidocaine patch and will send home on a regimen as strongly encouraged to reach out to her primary care doctor once again for the physical therapy referral. Differential Diagnosis Differential Diagnoses: The differential diagnosis associated with the presentation includes Please see the discussion above Admission/Observation Consideration of admission/observation: Escalation of care including admission/observation considered Please see the discussion above Independent Interpretation I performed an independent interpretation of an: EKG Interpretation: Normal sinus rhythm, HR-74, no STEMI, MO/QRS/QTC is within normal limits. External Record Review External record reviewed: Prior outpatient radiology Critical Care Time Critical Care Time Critical Care Time: Yes Total Critical Care Time: 30 Attestation: I personally attest to this time spent taking care of the patient. Discharge Plan Discharge Clinical Impression: Chronic right shoulder pain, Muscle spasm Patient Disposition: Home, Self-Care Instructions: Muscle Spasm (ED), Shoulder Pain (ED) Additional Instructions: 1. Tylenol 1000 mg, por v?a oral, cada 6 horas seg?n sea necesario para controlar el dolor. No exceda los 4000 mg en 24 horas. 2. Ibuprofeno 400 mg, por v?a oral con leche o comida, cada 6 horas seg?n sea necesario para controlar el dolor. Le recomiendo encarecidamente que tome ambos medicamentos juntos para mejorar el alivio de los s?ntomas. 3. Utilice un parche de lidoca?na de venta vj y apl?quelo en el ?che de m?xima sensibilidad simona se indica en el paquete exterior. 4. Adri un seguimiento con chang m?dico de atenci?n primaria seg?n lo programado y comun?quese fuera de la cl?alyson para poder obtener vesta copia de la derivaci?n de fisioterapia. Regrese a la braden de emergencias si los s?ntomas empeoran. 1. Tylenol 1000 mg, orally, every 6 hours as needed for pain control. Do not exceed 4000 mg within 24 hours. 2. Ibuprofen 400 mg, orally with milk or food, every 6 hours as needed for pain control. I highly recommend that you take both of these medications together for improved symptom relief. 3. Please utilize bhho-upg-ucfobwm lidocaine patch, apply to area of maximal tenderness as directed on the outside packaging. 4. Please follow-up with your primary care doctor as scheduled and reach out of the clinic so that you can get copy of the physical therapy referral. Return to the ER for any worsening symptoms. Prescriptions: New cyclobenzaprine 5 mg tablet 5 mg PO BEDTIME PRN (Reason: muscle spasm) Qty: 5 0RF No Action nmljscbxud-kjemdbmhftozi-jjmn [Fioricet] 50-300-40 mg capsule 1 cap PO Q6H PRN (Reason: headache) Qty: 20 0RF naproxen 500 mg tablet 500 mg PO BID PRN (Reason: pain) Qty: 30 0RF cyclobenzaprine 10 mg tablet 10 mg PO TID PRN (Reason: muscle spasm) Qty: 14 0RF Referrals: Ramona Lopez MD [Primary Care Provider] - Print Language: Vincentian
[2023-12-12 20:01] VITALS: BP 155/98; PULSE 81; RESP 19; TEMP 36.9; O2SAT 98
[2023-12-12] MEDS: Lidocaine 4 % Patch ADH..PATCH 1 PATCH TRANSDERMA (21:01)
[2023-12-12] MEDS: Acetaminophen 325 MG TABLET 975 MG PO (21:01)
[2023-12-12] MEDS: Ibuprofen 400 MG TABLET PO (21:02)
== END 2023-12-12 21:10 | disposition home or self-care (01) ==
PROVIDERS: Emergency Provider Student in an Organized Health Care Education/Training Program; PCP Internal Medicine
DX: S49.91XA Unspecified injury of right shoulder and upper arm, initial encounter (principal); M62.838 Other muscle spasm; X58.XXXA Exposure to other specified factors, initial encounter; Y93.9 Activity, unspecified; Y92.9 Unspecified place or not applicable; Y99.8 Other external cause status
CPT/HCPCS: 93005; 99283; 99284

== ENCOUNTER → 2023-12-12 17:42 | Outpatient (BNV) | payer MEDICAID, SELFPAY | PROVIDERS: Emergency Provider Student in an Organized Health Care Education/Training Program; PCP Internal Medicine; Visit Provider Internal Medicine Cardiovascular Disease | DX: M25.511 Pain in right shoulder (principal) | CPT/HCPCS: 93010 ==

== ENCOUNTER 2024-03-22 16:00 | Outpatient (RCR) | payer MEDICAID, SELFPAY | END 2024-03-22 17:57 | disposition home or self-care (01) | LOC: HO.PT 16:00 | PROVIDERS: PCP Internal Medicine; Visit Provider Family Medicine | DX: S46.811A Strain of other muscles, fascia and tendons at shoulder and upper arm level, right arm, initial encounter (principal) | CPT/HCPCS: 97110; 97140; 97161; 97530 ==

== ENCOUNTER 2024-03-30 01:00 | Emergency (ER) | payer MEDICAID, SELFPAY ==
[2024-03-30 01:10] VITALS: BP 140/65; PULSE 65; RESP 18; TEMP 36.2; O2SAT 100; BMI 24.9
--- NOTE | 2024-03-30 02:21 | ED.EXTPRO ---
HPI - Extremity Problem General Chief complaint: Extremity Injury, Upper Stated complaint: gen med? Time Seen by Provider: 03/30/24 01:57 History of Present Illness HPI Narrative: Patient is a 44-year-old female presented today complaining of pain to the right neck radiating down to the thumb claims that the symptom has been ongoing for months. Went to physical therapy initially was helping now is having symptoms again patient works at [employer] claims she is lifting heavy objects. Denies any fever chills. Denies any nausea vomiting. Denies any chest pain. Denies any diaphoresis. Was lifting heavy bags today. Once a couple day off. Denies any focal weakness. Denies any chance of being . No focal weakness Related Data Previous Rx's ?Medication ?Instructions ?Recorded [id number]-rvngdnaybpdvt-qyyvzmyd 1 cap PO Q6H PRN headache #20 caps 04/21/23 50 mg-300 mg-40 mg capsule (Fioricet) naproxen 500 mg tablet 500 mg PO BID PRN pain #30 tabs 10/24/23 cyclobenzaprine 10 mg tablet 10 mg PO TID PRN muscle spasm #14 11/20/23 tabs cyclobenzaprine 5 mg tablet 5 mg PO BEDTIME PRN muscle spasm 12/12/23 #5 tabs ibuprofen 400 mg tablet 400 mg PO Q6H PRN pain #20 tabs 03/30/24 Allergies Allergy/AdvReac Type Severity Reaction Status Date / Time No Known Allergies* Allergy Unknown Uncoded 03/30/24 01:14 Review of Systems Review of Systems: Positive pain to the neck on the right side Yes all other systems are reviewed and are negative [facility] Past Medical History Attestation statement: The following information was validated with the patient. Social History Social History Alcohol intake: unknown Advance Directives: No Advance Directives Information Provided: Yes Do you have a plan to hurt others: No Plan Physical Exam Vital Signs: Vital Signs: Last Vital Signs Temp 97.1 F 03/30/24 01:10 Pulse 65 03/30/24 01:10 Resp 18 03/30/24 01:10 BP 140/65 H 03/30/24 01:10 Pulse Ox 100 03/30/24 01:10 O2 Del Method Room Air 03/30/24 01:10 BMI result Body Mass Index 24.9 Appearance: Alert. Oriented X3. No acute distress. Eyes: Pupils equal, round and reactive to light. ENT: Pharynx normal. Neck: Normal inspection. Neck supple. No lymph nodes noted. No crepitus CVS: Normal heart rate and rhythm. Pulses normal. Normal S1 and S2 Respiratory: No respiratory distress. Breath sounds normal. No Wheezing. No rales Abdomen: Soft and nontender. No rigidity. No distention. good BS x4 Skin: Skin warm and dry. Normal skin color. Normal skin turgor. Extremities: No lower extremity edema. Neurovascular intact to all extremities. No Lacerations. No Rash Neuro: Oriented X 3. No motor deficit. No sensory deficit. Moving all extermities. No slurred speech. Examination of the right upper extremity shows sensation over the axillary median radial ulnar nerve intact. Range of motion intact. Opposition of the thumb intact capillary refill less than 2 seconds pulse 2 +skin intact Medical Decision Making Medical Decision Making MDM Narrative: Question cervical radiculopathy will have patient follow-up with [facility] follow-up with her primary she wanted Motrin for pain which showed help her in the past. Will prescribe that again for her. Will have her closely follow up. Is no chest pain or shortness breath no diaphoresis no signs suggestive ACS. Differential Diagnosis Differential Diagnoses: The differential diagnosis associated with the presentation includes Cervical radiculopathy, sprain Admission/Observation Consideration of admission/observation: Escalation of care including admission/observation considered Symptoms improving Prescription Management I considered prescription management with: Pain Medication Discharge Plan Discharge Clinical Impression: Cervical radiculopathy Patient Disposition: Home, Self-Care Prescriptions: New ibuprofen 400 mg tablet 400 mg PO Q6H PRN (Reason: pain) Qty: 20 0RF No Action xhgmkdwmuv-gbhsefhxxgxxz-bbdv [Fioricet] 50-300-40 mg capsule 1 cap PO Q6H PRN (Reason: headache) Qty: 20 0RF cyclobenzaprine 5 mg tablet 5 mg PO BEDTIME PRN (Reason: muscle spasm) Qty: 5 0RF naproxen 500 mg tablet 500 mg PO BID PRN (Reason: pain) Qty: 30 0RF cyclobenzaprine 10 mg tablet 10 mg PO TID PRN (Reason: muscle spasm) Qty: 14 0RF Referrals: [facility] [Provider Group] - 04/04/24 Physician,Unknown J [Primary Care Provider] - 04/04/24 Stand Alone Forms: Work/School Release Print Language: British
== END 2024-03-30 02:29 | disposition home or self-care (01) ==
PROVIDERS: Emergency Provider Emergency Medicine Emergency Medical Services
DX: M54.12 Radiculopathy, cervical region (principal); Z79.899 Other long term (current) drug therapy
CPT/HCPCS: 99281; 99283

== ENCOUNTER 2024-05-16 12:47 | Outpatient (REF) | payer MEDICAID, SELFPAY ==
[2024-05-16 16:19] LABS: MANUAL DIFF FLAG NO
[2024-05-16 16:30] LABS: Basophils Percent Auto 0.6 % (0-2); Eosinophils Absolute Auto 0.1 X10*3/uL (0.0-0.4); Eosinophils Percent Auto 1.2 % (0-4); Hematocrit 38.8 % (37.0-47.0); Hemoglobin 12.1 g/dl (12.0-16.0); Imm Gran Abs Auto 0.01 X10*3/uL (0.00-0.03); Imm Gran Pct Auto 0.2 % (0.0-0.4); Lymphocytes Absolute Auto 1.8 X10*3/uL (1.2-4.9); Lymphocytes Percent Auto 34.2 % (20-40); Mean Corpuscular HGB Conc 31.2 g/dl (31.0-35.0); Mean Corpuscular Hemoglobin 26.1 pg (27.0-33.0); Mean Corpuscular Volume 83.6 fL (80.0-98.0); Mean Platelet Volume 10.9 fL (9.4-12.3); Monocytes Absolute Auto 0.4 X10*3/uL (0.1-1.2); Monocytes Percent Auto 7.4 % (2-11); Neutrophils Absolute Auto 2.9 x10*3/uL (2.0-8.3); Neutrophils Percent Auto 56.4 % (45-73); Platelet Count 214 X10*3/uL (160-400); Red Blood Count 4.64 X10*6/uL (4.20-5.50); Red Cell Distribution Width 14.6 % (11.0-16.0); White Blood Count 5.2 X10*3/uL (4.8-10.8)
[2024-05-16 16:43] LABS: Estimated Average Glucose 117 mg/dL; Hemoglobin A1c % 5.7 % (<6.0)
[2024-05-16 17:03] LABS: Alanine Aminotransferase 12 U/L (0-31); Albumin Level 4.1 g/dL (3.5-5.0); Alkaline Phosphatase 34 U/L (39-117); Anion Gap 12 (12-20); Aspartate Amino Transferase 16 U/L (5-31); Bilirubin Total 0.4 mg/dL (0.0-1.0); Blood Urea Nitrogen 16 mg/dL (9-16); Calcium 8.7 mg/dL (8.4-10.2); Carbon Dioxide 24 mmol/L (22-29); Chloride 107 mmol/L (96-108); Cholesterol 203 mg/dL (<200); Estimated Glomerular Filt Rate > 60; Glucose Random 95 mg/dL (60-115); HDL Cholesterol 61 mg/dL (>40); LDL Cholesterol Calculated 119 mg/dL (<100); Potassium 4.2 mmol/L (3.3-5.1); Sodium 139 mmol/L (135-145); Total Protein 7.2 g/dL (6.5-8.0); Triglycerides 115 mg/dL (<150)
[2024-05-16 17:19] LABS: TSH reflex Free T4 0.81 uIU/mL (0.32-4.0)
[2024-05-16 20:22] LABS: Reflex LDLD? No
[2024-05-17 04:44] LABS: HIV AB/AG Nonreactive (Nonreactive); HIV Num 1 0.05 S/CO (0.00-0.99)
[2024-05-17 14:18] LABS: HCV Log PCR <1.18 NOT DETECTED Log IU/mL (NOT DETECTED); HepC Viral Load <15 NOT DETECTED IU/mL (NOT DETECTED)
== END 2024-05-16 12:48 | disposition home or self-care (01) ==
LOC: HO.HHCL 12:47
PROVIDERS: Visit Provider Internal Medicine
DX: Z00.00 Encounter for general adult medical examination without abnormal findings (principal)
CPT/HCPCS: 36415; 80053; 80061; 83036; 84443; 85025; 87389; 87522

== ENCOUNTER 2024-05-17 15:06 | Outpatient (REF) | payer MEDICAID, SELFPAY ==
--- NOTE | ~2024-05-17 | MM_ITS ---
EXAMINATION: MM SCREENING DIGITAL BREAST TOMOSYNTHESIS, BILATERAL CLINICAL INFORMATION: Screening. Asymptomatic. COMPARISON: Mammography: This is a baseline mammogram. TECHNIQUE: Digital breast tomosynthesis is performed in both the craniocaudal and mediolateral oblique views along with computer-aided detection (CAD). Synthesized 2D images are generated from the tomosynthesis. FINDINGS: There are scattered areas of fibroglandular density (ACR BI-RADS breast composition Category b). There are no significant masses, abnormal calcifications, or other abnormalities. MM/MM tomosynthesis screening BI IMPRESSION: No mammographic evidence of malignancy. ASSESSMENT: BI-RADS BI-RADS 1 - Negative RECOMMENDATION: Routine annual mammography screening. 1 year F/U This examination should not preclude the clinical evaluation of a suspicious palpable abnormality. This patient's information was entered into a reminder system with a target due date for their next mammogram.
== END 2024-05-17 15:07 | disposition home or self-care (01) ==
LOC: HO.MAMMO 15:06
PROVIDERS: Visit Provider Internal Medicine
DX: Z12.31 Encounter for screening mammogram for malignant neoplasm of breast (principal)
CPT/HCPCS: 77063; 77067

== ENCOUNTER → 2024-05-17 15:30 | Outpatient (BNV) | payer MEDICAID, SELFPAY | PROVIDERS: Visit Provider Radiology Diagnostic Radiology | DX: Z12.31 Encounter for screening mammogram for malignant neoplasm of breast (principal) | CPT/HCPCS: 77063; 77067 ==

== ENCOUNTER 2024-06-16 02:10 | Emergency (ER) | payer MEDICAID, SELFPAY ==
[2024-06-16 02:22] VITALS: BP 119/83; PULSE 74; RESP 18; TEMP 36.8; O2SAT 100; BMI 26.7
--- NOTE | 2024-06-16 02:54 | ED_ITS ---
HPI - General Adult General Chief complaint: General Medical Stated complaint: tired? Time Seen by Provider: 06/16/24 02:35 Source: patient Mode of arrival: ambulatory Limitations: no limitations History of Present Illness ED Provider: sylvie GARCIA narrative: Patient had last LMP 05/12 and has not have an any menstrual this month feel that he she could be having breast full lens and abdominal cramps came here to check for the no vaginal bleed no history of ectopics no nausea no vomiting Related Data Previous Rx's ?Medication ?Instructions ?Recorded hkwuqnrjqh-ksjdahghbytxm-ftpnlraz 1 cap PO Q6H PRN headache #20 caps 04/21/23 50 mg-300 mg-40 mg capsule (Fioricet) naproxen 500 mg tablet 500 mg PO BID PRN pain #30 tabs 10/24/23 cyclobenzaprine 10 mg tablet 10 mg PO TID PRN muscle spasm #14 11/20/23 tabs cyclobenzaprine 5 mg tablet 5 mg PO BEDTIME PRN muscle spasm 12/12/23 #5 tabs ibuprofen 400 mg tablet 400 mg PO Q6H PRN pain #20 tabs 03/30/24 norgestrel 0.3 mg-ethinyl 1 tab PO DAILY #84 tabs 06/16/24 estradiol 30 mcg tablet Allergies Allergy/AdvReac Type Severity Reaction Status Date / Time No Known Allergies* Allergy Unknown Uncoded 06/16/24 02:23 Review of Systems Review of Systems: Yes all other systems are reviewed and are negative PMFSH Social History Social History Alcohol intake: unknown Advance Directives: No Advance Directives Information Provided: Yes Do you have a plan to hurt others: No Plan Physical Exam ED Vital Signs: Vital Signs - 24 hr 06/16/24 02:22 06/16/24 03:48 Temperature 98.3 F 98.3 F Pulse Rate 74 74 Respiratory Rate 18 18 Blood Pressure 119/83 119/83 Pulse Oximetry 100 100 Oxygen Delivery Method Room Air Room Air BMI result Body Mass Index 26.7 Appearance: Alert. Oriented X3. No acute distress. ENT: Pharynx normal. Oral Mucosa moist Neck: Normal inspection. Neck supple. CVS: Normal heart rate and rhythm. Pulses normal. Respiratory: No respiratory distress. Equal air entry bilateral, abd soft nt Medical Decision Making Medical Decision Making [facility] Narrative: Patient was advised that her urine test is negative should wait for another week and if there is no menstruation by the end of next week she should recheck her test. Patient also requested control pills will give it to her advised to take it only after end of the menstruation. No history of DVT grandmother had breast cancer patient is aware of the patient has used control pills in the past Lab Data [facility] Lab Attestation statement: I reviewed the patient's lab results. Urine negative Labs: Lab Results 06/16/24 Range/Units 02:58 Urine Test NEGATIVE (NEGATIVE) Discharge Plan Discharge Clinical Impression: Normal exam Patient Disposition: Home, Self-Care Instructions: Normal Exam (ED) Additional Instructions: Your urine test is negative Rechecked in 1 week if no menstruation Follow with your PCP Start taking control pills only after menstruation as advised Prescriptions: New norgestrel-ethinyl estradiol 0.3-30 mg-mcg tablet 1 tab PO DAILY Qty: 84 0RF No Action jvpgrgghtn-xizcctwmxigkn-bqfr [Fioricet] 50-300-40 mg capsule 1 cap PO Q6H PRN (Reason: headache) Qty: 20 0RF cyclobenzaprine 5 mg tablet 5 mg PO BEDTIME PRN (Reason: muscle spasm) Qty: 5 0RF naproxen 500 mg tablet 500 mg PO BID PRN (Reason: pain) Qty: 30 0RF cyclobenzaprine 10 mg tablet 10 mg PO TID PRN (Reason: muscle spasm) Qty: 14 0RF ibuprofen 400 mg tablet 400 mg PO Q6H PRN (Reason: pain) Qty: 20 0RF Interventions: ED Discharge Assessment Last Done: 06/16/24 03:48 Discharge Date/Time: 06/16/24 03:49 Print Language: American
[2024-06-16 03:11] LABS: UPreg QC Valid YES; Urine Pregnancy NEGATIVE (NEGATIVE)
[2024-06-16 03:48] VITALS: BP 119/83; PULSE 74; RESP 18; TEMP 36.8; O2SAT 100
== END 2024-06-16 03:49 | disposition home or self-care (01) ==
PROVIDERS: Emergency Provider Internal Medicine
DX: Z32.02 Encounter for pregnancy test, result negative (principal)
CPT/HCPCS: 81025; 99282

== ENCOUNTER 2024-07-17 10:26 | Outpatient (REF) | payer MEDICAID, SELFPAY ==
[2024-07-20 16:12] LABS: TS Negative Control Passed; TS Panel A 1; TS Panel B 0; TS Positive Control Passed; TSpotTB Negative (Negative)
== END 2024-07-17 10:27 | disposition home or self-care (01) ==
LOC: HO.HHCL 10:26
PROVIDERS: Visit Provider Internal Medicine
DX: Z11.1 Encounter for screening for respiratory tuberculosis (principal)
CPT/HCPCS: 36415; 86481

== ENCOUNTER 2024-08-15 11:24 | Outpatient (AMB) | payer MEDICAID, SELFPAY ==
--- NOTE | 2024-08-15 11:34 | A.OFFVIS_ITS ---
Vital Signs 08/15/24 11:36 Height 5 ft 5 in Weight 156 lb BMI 26.0 Intake Visit Reasons: Vaginal lesion Adjunct History Instructor Required: Yes Adjunct History Instructor Language: Breast Surgeon Services: Adjunct History Instructor Present (in person) Adjunct History Instructor Name: Margaret MALONEY Information Interpreted: non-clinical & clinical Certified Teacher Assistant: Certified Teacher Assistant Present (Margaret MALONEY) Accompanied by: Self / Same As Patient Allergies No Known Allergies* Allergy (Uncoded 08/15/24 11:38) Unknown Is last menstrual period known: Yes Last menstrual period: 08/12/24 HPI Comments Details: Presenting complaining of right perineal abnormal area at the site of previous episiotomy site, no irritation, no painful intercourse or any other concerns the patient is interested in evaluating the possibility of reconstructive surgery to improve the way the right episiotomy site looks [facility] Medical History HTN (hypertension) Surgical History Hx of section Family History Father HTN (hypertension) Lung cancer Diabetes Heart attack Mother HTN (hypertension) Diabetes Sister HTN (hypertension) Maternal Grandmother Breast cancer Social History Household Members: Children Housing: Apartment Alcohol intake: current Alcohol intake frequency: a few times a week Alcohol type: beer Patient Tobacco Use Status: Former Tobacco user Tobacco use type: Cigarette Current occupational status: employed 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 Sexually active: No Sexual orientation: Straight/Heterosexual Gender identity: Female Female Reproductive History Menstrual Date of last menstrual period: 08/12/24 control method: none Total pregnancies: 3 Full term: 3 Number of Living Children: 3 Review of Systems Const All systems reviewed & are unremarkable except as noted in HPI and below Physical Exam Vital Signs: BMI result Body Mass Index 26.0 General: Yes no CVA tenderness External Female Exam: normal appearance of the urethra and other (Right sided episiotomy site with skin in indented do to subcutaneous scarri) Speculum Exam - Vagina: normal appearance of the vagina, normal palpation, no lesions and no masses Speculum Exam - Cervix: normal appearance of the cervix, normal palpation, no lesions, no masses and nontender Bimanual exam- vagina & uterus: normal bimanual exam, normal palpation, uterine size normal, normal palpation, uterine shape normal, No Cervical tenderness present and non-tender Bimanual Exam- Adnexa, other: normal adnexae Back/Spine/Pelvis Back: no CVA tenderness Assessment & Plan Assessment & Plan (1) Scarring: Comment: At the previous right-sided episiotomy site Code(s): L90.5 - Scar conditions and fibrosis of skin Category: Medical Plan: Discussed with the patient the finding on pelvic exam showing a indentation of the superficial skin of the previous episiotomy site due to scar tissue, options of treatment discussed with the patient include expectant manage versus revision of previous episiotomy . All pros and cons, risks and benefits of each were discussed with the patient, the patient decided to proceed with expectant management. Instructions given the patient to call in case of irritation, pain discomfort or painful intercourse. All questions answered, the patient verbalized understanding. Coding Level of Care Code New Pt Level 3 (36222) Diagnoses Scarring L90.5
[2024-08-15 11:36] VITALS: BMI 26.0
== END 2024-08-15 12:29 | disposition home or self-care (01) ==
LOC: HO.HWS 11:24
PROVIDERS: PCP Internal Medicine; Visit Provider Obstetrics & Gynecology
DX: L90.5 Scar conditions and fibrosis of skin (principal)
CPT/HCPCS: 99203

== ENCOUNTER → 2024-08-15 11:24 | Outpatient (BNVA) | payer MEDICAID, SELFPAY | PROVIDERS: PCP Internal Medicine; Visit Provider Obstetrics & Gynecology | DX: L90.5 Scar conditions and fibrosis of skin (principal) | CPT/HCPCS: 99202 ==

== ENCOUNTER 2024-12-27 | Outpatient (REF) | payer MEDICAID, SELFPAY ==
[2025-01-01 15:04] LABS: HPV Genotype 16 Negative (Negative); HPV Genotype 18 Negative (Negative); HPV High Risk Negative (Negative)
--- OUTSIDE RECORDS SUMMARY | 2025-04-17 18:28 | XMS_ITS | Encounter Summary ---
Author Organization [employer] Address [address] [place] [address] [address] [place] [address] Care Team Providers Care Panel Sewer Name Role Phone Ramona Lopez MD Primary Care Provide r Reason for Visit * Reason Comments Med Refill Encounter Details Date Type Department Care Team (Late st Contact Info) Description 05/26/2023 Refill [facility] [address] [place] [address] Ramoan Lopez MD [address] [place] [address] Primary hypertension Social History Tobacco Use Types Packs/Day Years Used Date Smoking Tobacco: Never Smokeless Tobacco: Never Depression Answer Date Recorded Patient Health Questionnaire-9 Score 0 03/09/2023 Depression Answer Date Recorded Patient Health Questionnaire-2 Score 0 03/09/2023 Comments Unknown Sex and Gender Information Value Date Recorded Sex Assigned at Female 08/23/2022 10:35 AM EDT Legal Sex Female 10:35 AM EDT Gender Identity Female 08/23/2022 10:35 AM EDT Sexual Orientation Choose not to disclose 2021 10:35 AM EDT COVID-19 Exposure Response Date Recorded In the last 10 days, have yo u been in contact with someone who was confirmed or suspected to have Coronavirus/COVID-19? No / Unsure 05/03/2023 2:28 PM EDT documented as of this encounter Plan of Treatment Upcoming Encounters Date Type Department Care Team (Late Contact Info) Description 05/01/2025 10:00 AM EDT Office Visit [facility] [address] [place] [address] Sherrell Low [address], [place] [id number] documented as of this encounter Visit Diagnoses Diagnosis Primary hypertension Unspecified essential hypertension documented in this encounter Additional Health Concerns Assessment Noted Time PHQ-9 Depression Total Score: 0 03/09/20 23 11:21 AM EDT documented as of this encounter Care Teams Panel Sewer Relationship Specialty Start Date End Date Ramona Lopez MD [address] [place] [address] PCP - General Family Medicine 07/03/19 documented as of this encounter
== END 2024-12-27 00:01 | disposition home or self-care (01) ==
LOC: HO.LNP
PROVIDERS: Visit Provider Internal Medicine
DX: Z12.4 Encounter for screening for malignant neoplasm of cervix (principal)
CPT/HCPCS: 87626; 88175

== ENCOUNTER 2025-01-11 08:54 | Emergency (ER) | payer MEDICAID, SELFPAY ==
--- NOTE | ~2025-01-11 | XR_ITS ---
EXAMINATION: XR CHEST 1 VIEW HISTORY: cough COMPARISON: Comparison is made with the prior examination dated 09/24/2023. FINDINGS: A single PA view of the chest is submitted. The lungs are expanded and clear. There is no pleural effusion, pneumothorax, or pulmonary vascular congestion. The heart is normal in size. The bones are intact. XR/XR chest 1V IMPRESSION: No acute cardiopulmonary abnormality. Electronically signed by: Chris Plaza MD 01/11/2025 09:34 AM EDT
[2025-01-11 08:55] VITALS: BP 133/88; PULSE 78; RESP 20; TEMP 36.9; O2SAT 99; BMI 25.4
--- NOTE | 2025-01-11 09:44 | ED_ITS ---
HPI - URI/Sore Throat General Chief Complaint: Upper Respiratory Symptoms Stated Complaint: Fly symptoms Time Seen by Provider: 01/11/25 09:37 Source: patient, RN notes reviewed and old records reviewed Mode of arrival: ambulatory Limitations: no limitations History of Present Illness ED Provider: Nguyen Guerrero PA-C HPI Narrative: 43 yo female presenting to the ER for evaluation of a mild, dry cough that started today. Here with her son who has had sore throat and cough for the last 2 days. Patient denies any fevers, chills, nausea, vomiting, abdominal pain. No chest pain or difficulty breathing. She reports some nasal congestion. she denies sore throat, difficulty swallowing or pain with swallowing MD elicited complaint: cough Onset (ago): hour(s) Severity: mild Exacerbating factors: nothing Relieving factors: nothing Context: sick contacts Associated symptoms: denies other symptoms Treatments prior to arrival: none Related Data Previous Rx's ?Medication ?Instructions ?Recorded zmsufgxqou-cfrzxevtkvhjg-gjqetpeu 1 cap PO Q6H PRN headache #20 caps 04/21/23 50 mg-300 mg-40 mg capsule (Fioricet) naproxen 500 mg tablet 500 mg PO BID PRN pain #30 tabs 10/24/23 cyclobenzaprine 10 mg tablet 10 mg PO TID PRN muscle spasm #14 11/20/23 tabs cyclobenzaprine 5 mg tablet 5 mg PO BEDTIME PRN muscle spasm 12/12/23 #5 tabs ibuprofen 400 mg tablet 400 mg PO Q6H PRN pain #20 tabs 03/30/24 norgestrel 0.3 mg-ethinyl 1 tab PO DAILY #84 tabs 06/16/24 estradiol 30 mcg tablet Allergies Allergy/AdvReac Type Severity Reaction Status Date / Time No Known Allergies* Allergy Unknown Uncoded 01/11/25 08:59 Review of Systems Review of Systems: Yes all other systems are reviewed and are negative PMFSH Past Medical History Medical History HTN (hypertension) Surgical History Hx of section Family History Family History Father HTN (hypertension) Lung cancer Diabetes Heart attack Mother HTN (hypertension) Diabetes Sister HTN (hypertension) Maternal Grandmother Breast cancer Social History Social History Household Members: Children Housing: Apartment Alcohol intake: current Alcohol intake frequency: a few times a week Alcohol type: beer Patient Tobacco Use Status: Former Tobacco user Tobacco use type: Cigarette Advance Directives: No Advance Directives Information Provided: No Do you have a plan to hurt others: No Plan Current occupational status: employed Current occupation: [employer] Sexual orientation: Straight/Heterosexual Gender identity: Female Physical Exam Vital Signs: Vital Signs: Last Vital Signs Temp 98.5 F 01/11/25 08:55 Pulse 78 01/11/25 08:55 Resp 20 01/11/25 08:55 BP 133/88 01/11/25 08:55 Pulse Ox 99 01/11/25 08:55 O2 Del Method Room Air 01/11/25 08:55 BMI result Body Mass Index 25.4 Appearance: Alert. Oriented X3. No acute distress. Head: normocephalic, atraumatic. Eyes: Pupils equal, round and reactive to light. ENT: Pharynx normal. No tonsillar swelling or exudate. Neck: Normal inspection. Neck supple. CVS: Normal heart rate and rhythm. Pulses normal. Respiratory: No respiratory distress. Breath sounds normal. Skin: Skin warm and dry. Normal skin color. Normal skin turgor. No rashes. Extremities: No lower extremity edema. No joint swelling. Neuro/psych: Oriented X 3. grossly normal, nonfocalNormal speech and cognition. Medical Decision Making Medical Decision Making [facility] Narrative: 44-year-old female presents to the ER for evaluation of mild cough that she woke up with this morning. She has been around her son who has strep throat. She does not have a sore throat, difficulty swallowing or evidence of strep throat on examination. Her vital signs are stable. Her test results today are negative for strep throat, COVID, flu, RSV. She appears well. She may be starting to get on viral illness. stable for discharge home Differential Diagnosis Differential Diagnoses: The differential diagnosis associated with the presentation includes strep, covid, flu, rsv, other viral syndrome, bronchitis, pneumonia, seasonal allergy Lab Data [facility] Lab Attestation statement: I reviewed the patient's lab results. Labs: Lab Results 01/11/25 Range/Units 09:07 Influenza Type A (PCR) NEGATIVE (Negative) Influenza Type B (PCR) NEGATIVE (Negative) RSV RNA Qual (PCR) NEGATIVE (Negative) SARS-CoV-2 RNA (RT-PCR) NEGATIVE (Negative) S. pyogenes GrpA MILVIA Negative (Negative) External Record Review External record reviewed: Prior outpatient labs Prescription Management I considered prescription management with: Antibiotic Critical Care Time Critical Care Time Critical Care Time: No Discharge Plan Discharge Clinical Impression: Upper respiratory infection Qualifiers: URI type: unspecified URI Qualified Code(s): J06.9 - Acute upper respiratory infection, unspecified Patient Disposition: Home, Self-Care Instructions: Upper Respiratory Infection (DC) Additional Instructions: you tested NEGATIVE for Strep throat, COVID, Flu and RSV rest and drink plenty of fluids Prescriptions: No Action mroodwecsp-zfzleozlcvqqp-vrcu [Fioricet] 50-300-40 mg capsule 1 cap PO Q6H PRN (Reason: headache) Qty: 20 0RF cyclobenzaprine 5 mg tablet 5 mg PO BEDTIME PRN (Reason: muscle spasm) Qty: 5 0RF naproxen 500 mg tablet 500 mg PO BID PRN (Reason: pain) Qty: 30 0RF cyclobenzaprine 10 mg tablet 10 mg PO TID PRN (Reason: muscle spasm) Qty: 14 0RF ibuprofen 400 mg tablet 400 mg PO Q6H PRN (Reason: pain) Qty: 20 0RF norgestrel-ethinyl estradiol 0.3-30 mg-mcg tablet 1 tab PO DAILY Qty: 84 0RF Print Language: Hong Konger
[2025-01-11 09:53] LABS: IDNOW Serial# 58CA691E; Strep A Nucleic Acid Negative (Negative)
[2025-01-11 10:22] LABS: Influenza A PCR NEGATIVE (Negative); Influenza B PCR NEGATIVE (Negative); Resp Syncy Virus RNA Qual PCR NEGATIVE (Negative); SARS COV2 PCR INHOUSE NEGATIVE (Negative)
[2025-01-11 10:55] VITALS: BP 133/88; PULSE 78; RESP 20; TEMP 36.9; O2SAT 99
== END 2025-01-11 10:56 | disposition home or self-care (01) ==
PROVIDERS: Emergency Provider Emergency Medicine; PCP Internal Medicine
DX: J06.9 Acute upper respiratory infection, unspecified (principal); R05.9 Cough, unspecified; J02.9 Acute pharyngitis, unspecified; R09.81 Nasal congestion; Z87.891 Personal history of nicotine dependence; Z03.818 Encounter for observation for suspected exposure to other biological agents ruled out
CPT/HCPCS: 0241U; 71045; 87651; 99283; 99284

== ENCOUNTER → 2025-01-11 09:00 | Outpatient (BNV) | payer MEDICAID, SELFPAY | PROVIDERS: Emergency Provider Emergency Medicine; PCP Internal Medicine; Visit Provider Radiology Diagnostic Radiology | DX: R05.9 Cough, unspecified (principal) | CPT/HCPCS: 71045 ==

== ENCOUNTER 2025-09-30 08:38 | Outpatient (REF) | payer MEDICAID, SELFPAY ==
[2025-09-30 11:24] LABS: MANUAL DIFF FLAG NO
[2025-09-30 11:54] LABS: Hematocrit 39.7 % (37.0-47.0); Hemoglobin 12.4 g/dl (12.0-16.0); Imm Gran Abs Auto 0.01 X10*3/uL (0.00-0.03); Imm Gran Pct Auto 0.1 % (0.0-0.4); Lymphocytes Absolute Auto 2.5 X10*3/uL (1.2-4.9); Mean Corpuscular HGB Conc 31.2 g/dl (31.0-35.0); Mean Corpuscular Hemoglobin 26.3 pg (27.0-33.0); Mean Corpuscular Volume 84.1 fL (80.0-98.0); NRBC Abs Auto 0.000 X10*3/uL (0.0-0.012); NRBC Pct Auto 0.0 /100WBC (0.0-0.2); Platelet Count 228 X10*3/uL (160-400); Red Blood Count 4.72 X10*6/uL (4.20-5.50); White Blood Count 6.8 X10*3/uL (4.8-10.8)
[2025-09-30 12:22] LABS: HIV Num 1 0.06 S/CO (0.00-0.99); ~HepC Num1 0.10 S/CO (0.00-0.79); ~Hepatitis C Antibody Nonreactive (Nonreactive)
[2025-09-30 12:33] LABS: Alanine Aminotransferase 20 U/L (0-31); Albumin Level 4.7 g/dL (3.5-5.0); Alkaline Phosphatase 47 U/L (39-117); Anion Gap 8 (12-20); Aspartate Amino Transferase 36 U/L (5-31); Blood Urea Nitrogen 14 mg/dL (9-16); Calcium 9.1 mg/dL (8.4-10.2); Carbon Dioxide 27 mmol/L (22-29); Chloride 108 mmol/L (96-108); Cholesterol 239 mg/dL (<200); Estimated Glomerular Filt Rate > 60; HDL Cholesterol 70 mg/dL (>40); Potassium 4.0 mmol/L (3.3-5.1); Sodium 139 mmol/L (135-145); Total Protein 7.7 g/dL (6.5-8.0); Triglycerides 125 mg/dL (<150)
== END 2025-09-30 08:39 | disposition home or self-care (01) ==
LOC: HO.HHCL 08:38
PROVIDERS: PCP Internal Medicine; Visit Provider Internal Medicine
DX: Z11.4 Encounter for screening for human immunodeficiency virus [HIV] (principal); Z11.59 Encounter for screening for other viral diseases; I10 Essential (primary) hypertension; R73.03 Prediabetes; R74.8 Abnormal levels of other serum enzymes
CPT/HCPCS: 36415; 80048; 80061; 80076; 82306; 83036; 85025; 86803; 87389